=== PATIENT | female | born 1950 | race Caucasian/White ===

== ENCOUNTER 2023-08-10 15:33 | Inpatient (IN) | payer OTHER ==
[2023-08-10 16:29] VITALS: BMI 19.1
[2023-08-10] MEDS ORDERED: ACETAMINOPHEN 1000 MG/100 ML BAG IVPB ONE (16:29)
[2023-08-10] MEDS ORDERED: ACETAMINOPHEN INJECTION 100 ML IVPB ONE (16:57)
[2023-08-10 18:16] LABS: BASO % 0.4 % (0-2.0); EOS % 0.1 % (0-4.5); HEMATOCRIT 42.6 % (32.4-45.2); HEMOGLOBIN 14.1 GM/dL (10.7-15.3); LYMPH % 7.8 % (8-40); MCH 28.1 pg (25.7-33.7); MCHC 33.1 g/dl (32.0-36.0); MEAN PLT VOLUME 7.9 fl (7.5-11.1); MONO % 3.9 % (3.8-10.2); NEUT % 87.8 % (42.8-82.8); PLATELET COUNT 171 10^3/uL (134-434); RBC 5.01 M/mm3 (3.60-5.2); WHITE BLOOD COUNT 9.4 K/mm3 (4.0-10.0)
[2023-08-10 18:18] LABS: POTASSIUM 4.2 mmol/L (3.5-5.1)
[2023-08-10 18:46] LABS: ALBUMIN 4.2 g/dl (3.4-5.0); BILIRUBIN,TOTAL 0.4 mg/dL (0.2-1); BLOOD UREA NITROGEN 8.8 mg/dL (7-18); CALCIUM 10.1 mg/dL (8.5-10.1); CREATININE 0.7 mg/dL (0.55-1.3); MAGNESIUM 2.4 mg/dL (1.8-2.4); PHOSPHOROUS 2.4 mg/dL (2.5-4.9); TOT PROT 8.6 g/dl (6.4-8.2)
[2023-08-10] MEDS ORDERED: HALOPERIDOL LACTATE 5 MG/ML IM ONE (18:50)
[2023-08-10] MEDS ORDERED: HALOPERIDOL LACTATE 5 MG/ML IVPUSH ONE (18:50)
[2023-08-10] MEDS ORDERED: HALOPERIDOL LACTATE 5 MG/ML ONE (18:51)
[2023-08-10] MEDS ORDERED: LACTATED RINGERS SOLUTION 1000 ML INFUS.BAG IV ONE (19:00)
[2023-08-10 20:18] LABS: EPI CELLS 2 /uL (0-25.1); HYALINE CASTS 0 /uL (0-3.1); URINE APPEARANCE CLEAR; URINE BACTERIA 2 /uL (0-1359); URINE BILIRUBIN NEGATIVE (NEGATIVE); URINE COLOR YELLOW; URINE GLUCOSE (UA) NEGATIVE (NEGATIVE); URINE KETONE NEGATIVE (NEGATIVE); URINE LEUK ESTERASE NEGATIVE (NEGATIVE); URINE NITRITE NEGATIVE (NEGATIVE); URINE PROTEIN NEGATIVE (NEGATIVE); URINE RBC 376 /uL (0-23.9); URINE UROBILINOGEN 0.2 mg/dL (0.2-1.0); URINE WBC 3 /uL (0-25.8)
[2023-08-10] MEDS ORDERED: NAPH,MB-DB/K PH,MBDB POWDER PACKET PO ONE (23:15)
[2023-08-11] MEDS: SODIUM CHLORIDE 1,000 ML IV SCH (00:51)
[2023-08-11] MEDS ORDERED: GABAPENTIN 100 MG CAPSULE ONE ×2 (04:52→14:35)
[2023-08-11] MEDS ORDERED: busPIRone HCL 5 MG TABLET ONE ×2 (04:53→14:35)
[2023-08-11] MEDS: busPIRone HCL 10 MG TABLET (FP) PO SCH ×3 (05:16→22:25)
[2023-08-11] MEDS: GABAPENTIN 100 MG CAPSULE PO SCH ×3 (05:16→22:25)
[2023-08-11] MEDS ORDERED: HEPARIN NA (PORCINE) 5,000 UNITS/ML 1ML VIAL SQ SCH (06:00)
[2023-08-11 08:17] LABS: HEMATOCRIT 33.4 % (32.4-45.2); MCH 28.3 pg (25.7-33.7); MEAN CELL VOLUME 85.6 fl (80-96); MEAN PLT VOLUME 7.6 fl (7.5-11.1); PLATELET COUNT 137 10^3/uL (134-434); RDW 16.2 % (11.6-15.6); WHITE BLOOD COUNT 8.8 K/mm3 (4.0-10.0)
[2023-08-11 08:21] LABS: POTASSIUM 3.5 mmol/L (3.5-5.1)
[2023-08-11 08:27] LABS: BLOOD UREA NITROGEN 8.1 mg/dL (7-18); MAGNESIUM 2.1 mg/dL (1.8-2.4)
[2023-08-11 08:29] LABS: CREATININE 0.6 mg/dL (0.55-1.3); PHOSPHOROUS 2.2 mg/dL (2.5-4.9)
[2023-08-11 08:33] LABS: BILIRUBIN,TOTAL 0.3 mg/dL (0.2-1)
[2023-08-11 08:42] LABS: CALCIUM 8.5 mg/dL (8.5-10.1); TOT PROT 6.5 g/dl (6.4-8.2)
[2023-08-11] MEDS: LEVOTHYROXINE NA 88 MCG TABLET (FP) PO SCH (08:43)
[2023-08-11] MEDS: DOCUSATE SODIUM 100 MG CAPSULE (FP) PO SCH (10:00)
[2023-08-11] MEDS ORDERED: PATIENT'S OWN MEDICATION (NON-FORMULARY) (Mirabegron [Myrbetriq] 50 MG Tab.Er.24h) PO SCH (10:00)
[2023-08-11] MEDS: HEPARIN NA (PORCINE) 5,000 UNITS/ML 1ML VIAL SQ SCH ×2 (10:00→22:25)
[2023-08-11] MEDS ORDERED: FAMOTIDINE 20 MG TABLET ONE (12:21)
[2023-08-11] MEDS: SOLIFENACIN SUCCINATE 5 MG TAB PO SCH (12:25)
[2023-08-11] MEDS: FAMOTIDINE 20 MG TABLET PO SCH (12:43)
[2023-08-11] MEDS ORDERED: REMDESIVIR 200 MG in SODIUM CHLORIDE 250 ML IVPB ONE (13:30)
[2023-08-11] MEDS ORDERED: clonazePAM 0.5 MG TABLET ONE (14:35)
[2023-08-11] MEDS: clonazePAM 0.5 MG TABLET PO SCH ×2 (15:00→22:25)
[2023-08-11] MEDS ORDERED: CEFTRIAXONE 1 GM in DEXTROSE 5%-WATER - 50 ML IVPB SCH (15:15)
[2023-08-11] MEDS ORDERED: AZTREONAM 1 GM VIAL (RESTRICTED TO ID) ONE (16:13)
[2023-08-11] MEDS: AZTREONAM 1 GM in DEXTROSE 5%-WATER - 50 ML IVPB SCH ×2 (16:30→23:23)
[2023-08-11] MEDS ORDERED: traZODone HCL 50 MG TABLET (FP) ONE (22:15)
[2023-08-11] MEDS: ATORVASTATIN CA 10 MG TABLET (FP) PO SCH (22:25)
[2023-08-11] MEDS: MELATONIN 5 MG TABLETS PO SCH (22:26)
[2023-08-11] MEDS: traZODone HCL 100 MG TABLET (FP) PO SCH (22:27)
[2023-08-12] MEDS: busPIRone HCL 10 MG TABLET (FP) PO SCH ×3 (06:33→21:42)
[2023-08-12] MEDS: LEVOTHYROXINE NA 88 MCG TABLET (FP) PO SCH (06:33)
[2023-08-12] MEDS: clonazePAM 0.5 MG TABLET PO SCH ×3 (06:33→21:42)
[2023-08-12] MEDS: SODIUM CHLORIDE 1,000 ML IV SCH (06:34)
[2023-08-12] MEDS: GABAPENTIN 100 MG CAPSULE PO SCH ×3 (06:34→21:42)
[2023-08-12] MEDS: AZTREONAM 1 GM in DEXTROSE 5%-WATER - 50 ML IVPB SCH ×2 (08:22→14:47)
[2023-08-12] MEDS: FAMOTIDINE 20 MG TABLET PO SCH (10:27)
[2023-08-12] MEDS: SOLIFENACIN SUCCINATE 5 MG TAB PO SCH (10:27)
[2023-08-12] MEDS: DOCUSATE SODIUM 100 MG CAPSULE (FP) PO SCH (10:27)
[2023-08-12] MEDS: HEPARIN NA (PORCINE) 5,000 UNITS/ML 1ML VIAL SQ SCH ×2 (10:36→21:43)
[2023-08-12] MEDS: REMDESIVIR 100 MG in SODIUM CHLORIDE 230 ML IVPB SCH (16:35)
[2023-08-12] MEDS ORDERED: traZODone HCL 50 MG TABLET (FP) ONE (21:17)
[2023-08-12] MEDS: MELATONIN 5 MG TABLETS PO SCH (21:42)
[2023-08-12] MEDS: ATORVASTATIN CA 10 MG TABLET (FP) PO SCH (21:42)
[2023-08-12] MEDS: traZODone HCL 100 MG TABLET (FP) PO SCH (21:43)
[2023-08-13] MEDS: LEVOTHYROXINE NA 88 MCG TABLET (FP) PO SCH (06:53)
[2023-08-13] MEDS: GABAPENTIN 100 MG CAPSULE PO SCH ×4 (06:53→21:40)
[2023-08-13] MEDS: clonazePAM 0.5 MG TABLET PO SCH ×4 (06:53→21:39)
[2023-08-13] MEDS: busPIRone HCL 10 MG TABLET (FP) PO SCH ×4 (06:53→21:39)
[2023-08-13] MEDS: FAMOTIDINE 20 MG TABLET PO SCH (13:53)
[2023-08-13] MEDS: SOLIFENACIN SUCCINATE 5 MG TAB PO SCH (13:57)
[2023-08-13] MEDS: REMDESIVIR 100 MG in SODIUM CHLORIDE 230 ML IVPB SCH (16:44)
[2023-08-13] MEDS: HEPARIN NA (PORCINE) 5,000 UNITS/ML 1ML VIAL SQ SCH ×2 (16:44→21:39)
[2023-08-13] MEDS ORDERED: traZODone HCL 50 MG TABLET (FP) ONE (20:38)
[2023-08-13] MEDS: traZODone HCL 100 MG TABLET (FP) PO SCH ×2 (20:43→21:39)
[2023-08-13] MEDS: MELATONIN 5 MG TABLETS PO SCH ×2 (20:45→21:40)
[2023-08-13] MEDS: ATORVASTATIN CA 10 MG TABLET (FP) PO SCH ×2 (20:45→21:39)
[2023-08-14] MEDS: busPIRone HCL 10 MG TABLET (FP) PO SCH ×3 (06:23→21:18)
[2023-08-14] MEDS: LEVOTHYROXINE NA 88 MCG TABLET (FP) PO SCH (06:23)
[2023-08-14] MEDS: clonazePAM 0.5 MG TABLET PO SCH ×3 (06:23→21:09)
[2023-08-14] MEDS: GABAPENTIN 100 MG CAPSULE PO SCH ×3 (06:23→21:10)
[2023-08-14] MEDS: FAMOTIDINE 20 MG TABLET PO SCH ×3 (09:54→12:00)
[2023-08-14] MEDS: HEPARIN NA (PORCINE) 5,000 UNITS/ML 1ML VIAL SQ SCH ×2 (09:55→21:09)
[2023-08-14] MEDS: SOLIFENACIN SUCCINATE 5 MG TAB PO SCH (14:34)
[2023-08-14] MEDS ORDERED: traMADol HCL 50 MG TABLET PO PRN (17:01)
[2023-08-14] MEDS ORDERED: ACETAMINOPHEN 325 MG TABLET (FP) PO PRN (17:02)
[2023-08-14] MEDS ORDERED: ONDANSETRON 4 MG/2 ML VIAL IVPUSH PRN (17:10)
[2023-08-14] MEDS ORDERED: ONDANSETRON 4 MG TABLET PO ONE (17:30)
[2023-08-14] MEDS ORDERED: diphenhydrAMINE HCL 25 MG CAPSULE (FP) PO PRN (17:33)
[2023-08-14] MEDS ORDERED: traZODone HCL 50 MG TABLET (FP) ONE (19:59)
[2023-08-14] MEDS: BENZOCAINE/MENTHOL 1 EACH LOZENGE MM PRN (21:01)
[2023-08-14] MEDS: traZODone HCL 100 MG TABLET (FP) PO SCH (21:09)
[2023-08-14] MEDS: MELATONIN 5 MG TABLETS PO SCH (21:10)
[2023-08-14] MEDS: ATORVASTATIN CA 10 MG TABLET (FP) PO SCH (21:10)
[2023-08-15] MEDS: GABAPENTIN 100 MG CAPSULE PO SCH ×3 (06:16→21:33)
[2023-08-15] MEDS: busPIRone HCL 10 MG TABLET (FP) PO SCH ×3 (06:16→21:34)
[2023-08-15] MEDS: clonazePAM 0.5 MG TABLET PO SCH ×3 (06:16→21:35)
[2023-08-15] MEDS: LEVOTHYROXINE NA 88 MCG TABLET (FP) PO SCH (06:17)
[2023-08-15] MEDS: FAMOTIDINE 20 MG TABLET PO SCH (10:49)
[2023-08-15] MEDS: SOLIFENACIN SUCCINATE 5 MG TAB PO SCH (10:50)
[2023-08-15] MEDS: HEPARIN NA (PORCINE) 5,000 UNITS/ML 1ML VIAL SQ SCH ×2 (10:50→21:35)
[2023-08-15] MEDS ORDERED: traZODone HCL 50 MG TABLET (FP) ONE ×2 (21:28→21:36)
[2023-08-15] MEDS: PHENOL 177 ML SPRAY BOTTLE MM PRN (21:31)
[2023-08-15] MEDS: MELATONIN 5 MG TABLETS PO SCH (21:33)
[2023-08-15] MEDS: ATORVASTATIN CA 10 MG TABLET (FP) PO SCH (21:35)
[2023-08-15] MEDS: traZODone HCL 100 MG TABLET (FP) PO SCH (21:40)
[2023-08-16] MEDS: busPIRone HCL 10 MG TABLET (FP) PO SCH ×4 (06:09→21:42)
[2023-08-16] MEDS: LEVOTHYROXINE NA 88 MCG TABLET (FP) PO SCH (06:09)
[2023-08-16] MEDS: clonazePAM 0.5 MG TABLET PO SCH ×3 (06:09→21:42)
[2023-08-16] MEDS: GABAPENTIN 100 MG CAPSULE PO SCH ×3 (06:09→21:42)
[2023-08-16] MEDS: HEPARIN NA (PORCINE) 5,000 UNITS/ML 1ML VIAL SQ SCH ×3 (10:00→21:43)
[2023-08-16] MEDS: FAMOTIDINE 20 MG TABLET PO SCH (11:41)
[2023-08-16] MEDS: SOLIFENACIN SUCCINATE 5 MG TAB PO SCH (11:41)
[2023-08-16] MEDS: BENZOCAINE/MENTHOL 1 EACH LOZENGE MM PRN (15:44)
[2023-08-16] MEDS: PHENOL 177 ML SPRAY BOTTLE MM PRN (15:44)
[2023-08-16] MEDS: ATORVASTATIN CA 10 MG TABLET (FP) PO SCH (21:42)
[2023-08-16] MEDS: traZODone HCL 100 MG TABLET (FP) PO SCH (21:42)
[2023-08-16] MEDS: MELATONIN 5 MG TABLETS PO SCH (21:42)
[2023-08-17] MEDS: clonazePAM 0.5 MG TABLET PO SCH (06:20)
[2023-08-17] MEDS: LEVOTHYROXINE NA 88 MCG TABLET (FP) PO SCH (06:20)
[2023-08-17] MEDS: busPIRone HCL 10 MG TABLET (FP) PO SCH ×3 (06:20→22:04)
[2023-08-17] MEDS: GABAPENTIN 100 MG CAPSULE PO SCH ×3 (06:21→22:06)
[2023-08-17] MEDS ORDERED: BENZOCAINE/MENTHOL 1 EACH LOZENGE MM PRN (08:37)
[2023-08-17] MEDS: SOLIFENACIN SUCCINATE 5 MG TAB PO SCH (10:27)
[2023-08-17] MEDS: FAMOTIDINE 20 MG TABLET PO SCH (10:27)
[2023-08-17] MEDS: HEPARIN NA (PORCINE) 5,000 UNITS/ML 1ML VIAL SQ SCH ×2 (10:27→22:04)
[2023-08-17] MEDS: ATORVASTATIN CA 10 MG TABLET (FP) PO SCH (22:04)
[2023-08-17] MEDS: MELATONIN 5 MG TABLETS PO SCH (22:04)
[2023-08-17] MEDS: traZODone HCL 100 MG TABLET (FP) PO SCH (22:05)
[2023-08-18] MEDS: busPIRone HCL 10 MG TABLET (FP) PO SCH ×3 (06:27→21:26)
[2023-08-18] MEDS: LEVOTHYROXINE NA 88 MCG TABLET (FP) PO SCH (06:27)
[2023-08-18] MEDS: GABAPENTIN 100 MG CAPSULE PO SCH ×3 (06:27→21:25)
[2023-08-18] MEDS ORDERED: HALOPERIDOL LACTATE 5 MG/ML IM ONE (08:25)
[2023-08-18] MEDS: SOLIFENACIN SUCCINATE 5 MG TAB PO SCH (10:20)
[2023-08-18] MEDS: FAMOTIDINE 20 MG TABLET PO SCH (10:20)
[2023-08-18] MEDS: HEPARIN NA (PORCINE) 5,000 UNITS/ML 1ML VIAL SQ SCH ×2 (11:32→21:26)
[2023-08-18] MEDS: AMINO ACIDS/PROTEIN HYDROLYS 30 ML LIQUID.PKT PO SCH (11:32)
[2023-08-18] MEDS ORDERED: LORazepam 2 MG/ML SDV VIAL IM PRN (12:06)
[2023-08-18] MEDS: ATORVASTATIN CA 10 MG TABLET (FP) PO SCH (21:25)
[2023-08-18] MEDS: MELATONIN 5 MG TABLETS PO SCH (21:25)
[2023-08-18] MEDS: traZODone HCL 100 MG TABLET (FP) PO SCH (21:26)
[2023-08-18] MEDS ORDERED: ONDANSETRON *ODT* 4 MG TABLET SL PRN (22:15)
[2023-08-19] MEDS: GABAPENTIN 100 MG CAPSULE PO SCH (05:51)
[2023-08-19] MEDS: busPIRone HCL 10 MG TABLET (FP) PO SCH (05:52)
[2023-08-19] MEDS: LEVOTHYROXINE NA 88 MCG TABLET (FP) PO SCH (07:01)
[2023-08-19] MEDS ORDERED: clonazePAM 0.5 MG TABLET PO SCH (07:30)
[2023-08-19] MEDS: AMINO ACIDS/PROTEIN HYDROLYS 30 ML LIQUID.PKT PO SCH (08:42)
[2023-08-19] MEDS ORDERED: NAPH,MB-DB/K PH,MBDB POWDER PACKET PO SCH (10:00)
[2023-08-19] MEDS: SOLIFENACIN SUCCINATE 5 MG TAB PO SCH (12:00)
[2023-08-19] MEDS: FAMOTIDINE 20 MG TABLET PO SCH (12:00)
[2023-08-19] MEDS: HEPARIN NA (PORCINE) 5,000 UNITS/ML 1ML VIAL SQ SCH (12:01)
[2023-08-19 12:18] VITALS: BP 128/77; PULSE 98; RESP 20; TEMP 99
== END 2023-08-19 12:33 | DRG 177 ==
LOC: JER 15:33 → JERBED 21:27 → J4W 08-11 18:53 → OBSVTOIN 08-12 09:22 → J4W 08-14 01:49 → J7W 08-16 18:10
PROVIDERS: ADMIT Student in an Organized Health Care Education/Training Program; ATTEND Internal Medicine
PROC: XW033E5 Introduction of Remdesivir Anti-infective into Peripheral Vein, Percutaneous Approach, New Technology Group 5 (ICD-10-PCS; principal; 2023-08-11)
DX: U07.1 COVID-19 (principal); E43 Unspecified severe protein-calorie malnutrition; Z68.1 Body mass index [BMI] 19.9 or less, adult; E03.9 Hypothyroidism, unspecified; F41.9 Anxiety disorder, unspecified; N32.81 Overactive bladder; K21.9 Gastro-esophageal reflux disease without esophagitis; E78.5 Hyperlipidemia, unspecified; F32.A Depression, unspecified; Z74.01 Bed confinement status; R41.0 Disorientation, unspecified; F03.90 Unspecified dementia, unspecified severity, without behavioral disturbance, psychotic disturbance, mood disturbance, and anxiety; R31.29 Other microscopic hematuria; R62.7 Adult failure to thrive
CPT/HCPCS: 0241U-QW; 36415; 70450-TC; 70486-TC; 71045-TC-FY; 72125-TC; 76705-TC; 80053; 81003; 82308; 83735; 84100; 84443; 84484; 85025; 85027; 87040; 87086; 87635; 93005; 93010; 93880-TC; 97116-GP; 97161-GP; 99285-25; G0378; J0248; J1644

== ENCOUNTER 2024-02-13 16:32 | Emergency (ER) | payer OTHER ==
[2024-02-13 16:47] VITALS: BP 113/74; PULSE 92; RESP 18; TEMP 98; BMI 14.0
[2024-02-13] MEDS ORDERED: ACETAMINOPHEN 325 MG TABLET (FP) ONE (18:24)
[2024-02-13] MEDS: ACETAMINOPHEN 325 MG TABLET (FP) PO ONE (19:31)
== END 2024-02-13 23:24 | disposition home or self-care (01) ==
LOC: JER 16:32
DX: S09.90XA Unspecified injury of head, initial encounter (principal); W18.39XA Other fall on same level, initial encounter
CPT/HCPCS: 70450-TC; 71045-TC-FY; 72125-TC; 72170-TC-FY; 99284-25

== ENCOUNTER 2024-08-11 01:38 | Emergency (ER) | payer OTHER ==
[2024-08-11 02:04] VITALS: BMI 16.0
[2024-08-11] MEDS ORDERED: ACETAMINOPHEN INJECTION 100 ML ONE (02:42)
[2024-08-11] MEDS: ACETAMINOPHEN 1000 MG/100 ML BAG IVPB ONE (03:19)
[2024-08-11 03:43] LABS: BASO % 0.5 % (0-2.0); EOS % 3.5 % (0-4.5); HEMATOCRIT 34.9 % (32.4-45.2); HEMOGLOBIN 11.3 GM/dL (10.7-15.3); MCH 28.3 pg (25.7-33.7); MCHC 32.3 g/dl (32.0-36.0); MEAN CELL VOLUME 87.5 fl (80-96); MEAN PLT VOLUME 7.4 fl (7.5-11.1); MONO % 6.1 % (3.8-10.2); NEUT % 63.9 % (42.8-82.8); PLATELET COUNT 225 10^3/uL (134-434); RBC 3.99 M/mm3 (3.60-5.2); RDW 16.3 % (11.6-15.6); WHITE BLOOD COUNT 7.4 K/mm3 (4.0-10.0)
[2024-08-11 04:06] LABS: POTASSIUM 3.8 mmol/L (3.5-5.1)
[2024-08-11 04:09] LABS: ALBUMIN 3.5 g/dl (3.4-5.0); BLOOD UREA NITROGEN 9.8 mg/dL (7-18); CALCIUM 9.7 mg/dL (8.5-10.1)
[2024-08-11 04:12] LABS: CREATININE 0.6 mg/dL (0.55-1.3)
[2024-08-11 04:14] LABS: BILIRUBIN,TOTAL 0.2 mg/dL (0.2-1); TOT PROT 7.7 g/dl (6.4-8.2)
[2024-08-11 05:44] VITALS: BP 142/59; PULSE 82; RESP 16; TEMP 97.6
== END 2024-08-11 09:23 ==
LOC: JER 01:38
PROC: 3E033NZ Introduction of Analgesics, Hypnotics, Sedatives into Peripheral Vein, Percutaneous Approach (ICD-10-PCS; principal; 2024-08-11)
DX: R07.9 Chest pain, unspecified (principal); R05.9 Cough, unspecified; R09.81 Nasal congestion; Z20.822 Contact with and (suspected) exposure to COVID-19
CPT/HCPCS: 0241U-QW; 36415; 71045-TC-FY; 80053; 84484; 85025; 93005; 93010; 99285-25; J0131

== ENCOUNTER 2024-09-01 15:35 | Emergency (ER) | payer OTHER ==
[2024-09-01 16:02] VITALS: RESP 18; TEMP 98.5; BMI 17.3
[2024-09-01 21:29] VITALS: BP 98/60; PULSE 78
== END 2024-09-01 21:43 ==
LOC: JER 15:35
DX: M54.9 Dorsalgia, unspecified (principal); M25.561 Pain in right knee; M25.562 Pain in left knee; W01.198A Fall on same level from slipping, tripping and stumbling with subsequent striking against other object, initial encounter
CPT/HCPCS: 70450-TC; 72125-TC; 99284-25

== ENCOUNTER 2024-10-23 17:49 | Inpatient (IN) | payer OTHER ==
[2024-10-23] MEDS ORDERED: ACETAMINOPHEN INJECTION 100 ML ONE (19:24)
[2024-10-23 19:30] LABS: VENOUS BASE EXCESS -0.1 mmol/L (-2-2); VENOUS PCO2 41.6 mmHg (38-52); VENOUS PH 7.394 (7.310-7.410)
[2024-10-23] MEDS: ACETAMINOPHEN 1000 MG/100 ML BAG IVPB ONE (19:31)
[2024-10-23 19:37] LABS: BASO % 0.7 % (0-2.0); EOS % 0.1 % (0-4.5); HEMATOCRIT 34.2 % (32.4-45.2); LYMPH % 6.7 % (8-40); MCH 28.1 pg (25.7-33.7); MCHC 32.1 g/dl (32.0-36.0); MEAN CELL VOLUME 87.5 fl (80-96); MEAN PLT VOLUME 8.1 fl (7.5-11.1); MONO % 8.3 % (3.8-10.2); NEUT % 84.2 % (42.8-82.8); PLATELET COUNT 154 10^3/uL (134-434); RBC 3.91 M/mm3 (3.60-5.2); RDW 14.9 % (11.6-15.6); WHITE BLOOD COUNT 5.6 K/mm3 (4.0-10.0)
[2024-10-23] MEDS: SODIUM CHLORIDE 0.9% 500 ML INFUS.BAG IV ONE (19:42)
[2024-10-23 19:46] LABS: INR 1.17 (0.83-1.09); PROTHROMBIN TIME (PATIENT) 13.4 SEC (9.7-13.0)
[2024-10-23 19:48] LABS: POTASSIUM 4.8 mmol/L (3.5-5.1)
[2024-10-23 19:50] LABS: CALCIUM 9.6 mg/dL (8.5-10.1)
[2024-10-23 19:51] LABS: ALBUMIN 3.4 g/dl (3.4-5.0); BLOOD UREA NITROGEN 11.6 mg/dL (7-18)
[2024-10-23 19:54] LABS: CREATININE 0.7 mg/dL (0.55-1.3)
[2024-10-23 19:55] LABS: BILIRUBIN,TOTAL 0.3 mg/dL (0.2-1); TOT PROT 7.6 g/dl (6.4-8.2)
[2024-10-23] MEDS ORDERED: OSELTAMIVIR PHOSPHATE 75 MG CAPSULE ONE (22:54)
[2024-10-23] MEDS: OSELTAMIVIR PHOSPHATE 75 MG CAPSULE PO ONE (23:03)
[2024-10-24] MEDS ORDERED: clonazePAM 0.5 MG TABLET ONE ×2 (03:30→09:08)
[2024-10-24] MEDS: PATIENT'S OWN MEDICATION (NON-FORMULARY) (Clonazepam [Clonazepam] 1 MG Tablet) PO SCH (03:35)
[2024-10-24] MEDS: BENZONATATE 200 MG CAPSULE PO PRN (04:07)
[2024-10-24] MEDS: OLANZapine 10 MG TABLET PO SCH ×2 (04:12→09:03)
[2024-10-24] MEDS ORDERED: ACETAMINOPHEN INJECTION 100 ML ONE (05:37)
[2024-10-24] MEDS: ACETAMINOPHEN 1000 MG/100 ML BAG IVPB ONE ×2 (05:38→22:55)
[2024-10-24 06:00] LABS: URINE APPEARANCE CLEAR; URINE BILIRUBIN NEGATIVE (NEGATIVE); URINE COLOR YELLOW; URINE GLUCOSE (UA) NEGATIVE (NEGATIVE); URINE KETONE NEGATIVE (NEGATIVE); URINE LEUK ESTERASE 2+ (NEGATIVE); URINE NITRITE NEGATIVE (NEGATIVE); URINE PROTEIN TRACE (NEGATIVE); URINE UROBILINOGEN 0.2 mg/dL (0.2-1.0)
[2024-10-24 06:17] LABS: EPI CELLS 41.7 /uL (0-25.1); URINE BACTERIA 312.7 /uL (0-1359)
[2024-10-24 08:03] LABS: BASO % 0.5 % (0-2.0); HEMATOCRIT 30.7 % (32.4-45.2); HEMOGLOBIN 10.2 GM/dL (10.7-15.3); LYMPH % 10.9 % (8-40); MCH 28.6 pg (25.7-33.7); MCHC 33.2 g/dl (32.0-36.0); MEAN CELL VOLUME 86.1 fl (80-96); MEAN PLT VOLUME 7.9 fl (7.5-11.1); MONO % 8.6 % (3.8-10.2); PLATELET COUNT 124 10^3/uL (134-434); RBC 3.56 M/mm3 (3.60-5.2); RDW 15.2 % (11.6-15.6); WHITE BLOOD COUNT 3.2 K/mm3 (4.0-10.0)
[2024-10-24 08:17] LABS: POTASSIUM 3.7 mmol/L (3.5-5.1)
[2024-10-24 08:19] LABS: CALCIUM 8.6 mg/dL (8.5-10.1)
[2024-10-24 08:20] LABS: BLOOD UREA NITROGEN 10.6 mg/dL (7-18); MAGNESIUM 1.9 mg/dL (1.8-2.4)
[2024-10-24 08:23] LABS: CREATININE 0.6 mg/dL (0.55-1.3)
[2024-10-24] MEDS ORDERED: ACETAMINOPHEN 325 MG TABLET (FP) ONE ×2 (08:55→09:08)
[2024-10-24] MEDS: OSELTAMIVIR PHOSPHATE 30 MG CAPSULE PO SCH (09:03)
[2024-10-24] MEDS: oxyCODONE HCL 5 MG TABLET PO SCH (09:09)
[2024-10-24] MEDS: ACETAMINOPHEN 325 MG TABLET (FP) PO SCH (09:09)
[2024-10-24] MEDS: clonazePAM 0.5 MG TABLET PO SCH (09:09)
[2024-10-24] MEDS ORDERED: oxyCODONE HCL 5 MG TABLET ONE (09:09)
[2024-10-24] MEDS ORDERED: PATIENT'S OWN MEDICATION (NON-FORMULARY) (Diclofenac Sodium [Voltaren] 100 GM Gel..Gram.) TP SCH (11:15)
[2024-10-24] MEDS: BUDESONIDE/FORMOTEROL FUMARATE 80-4.5 MCG (10.3 GM INHALER) IH SCH (12:42)
[2024-10-24] MEDS: ACETAMINOPHEN 325 MG TABLET (FP) PO PRN (13:49)
[2024-10-24] MEDS: LIDOCAINE 5% TOPICAL PATCH TP PRN (15:35)
[2024-10-24] MEDS: ASCORBIC ACID 500 MG TABLET (FP) PO SCH (21:09)
[2024-10-24] MEDS: traZODone HCL 100 MG TABLET (FP) PO SCH (21:09)
[2024-10-24] MEDS: SERTRALINE HCL 50 MG TABLET (FP) PO SCH (21:09)
[2024-10-24] MEDS: MELATONIN 5 MG TABLETS PO SCH (21:09)
[2024-10-24] MEDS: ATORVASTATIN CA 20 MG TABLET (FP) PO SCH (21:09)
[2024-10-24] MEDS ORDERED: SUVOREXANT 5 MG TABLET PO PRN (22:00)
[2024-10-24] MEDS ORDERED: DICLOFENAC SODIUM TP SCH (22:00)
[2024-10-24] MEDS ORDERED: PATIENT'S OWN MEDICATION (NON-FORMULARY) (Olanzapine [Zyprexa] 10 MG Tablet) PO SCH (22:00)
[2024-10-24] MEDS ORDERED: SUVOREXANT 10 MG TABLET PO PRN (22:52)
[2024-10-24] MEDS: LIDOCAINE PATCH REMOVAL MC SCH (23:04)
[2024-10-25] MEDS: SUVOREXANT 20 MG TABLET PO SCH (00:46)
[2024-10-25] MEDS: ACETAMINOPHEN 1000 MG/100 ML BAG IVPB ONE (04:40)
[2024-10-25] MEDS: IBUPROFEN 800 MG/8 ML IJ IVPB ONE (07:10)
[2024-10-25 08:33] LABS: BASO % 0.2 % (0-2.0); EOS % 0.1 % (0-4.5); HEMATOCRIT 31.2 % (32.4-45.2); HEMOGLOBIN 10.5 GM/dL (10.7-15.3); LYMPH % 8.5 % (8-40); MCHC 33.5 g/dl (32.0-36.0); MEAN CELL VOLUME 86.7 fl (80-96); MEAN PLT VOLUME 8.2 fl (7.5-11.1); MONO % 3.2 % (3.8-10.2); PLATELET COUNT 122 10^3/uL (134-434); RDW 15.3 % (11.6-15.6); WHITE BLOOD COUNT 6.2 K/mm3 (4.0-10.0)
[2024-10-25 08:57] LABS: POTASSIUM 3.5 mmol/L (3.5-5.1)
[2024-10-25 09:02] LABS: CREATININE 0.9 mg/dL (0.55-1.3)
[2024-10-25] MEDS: MIDODRINE HCL 2.5 MG TABLET PO SCH (09:29)
[2024-10-25] MEDS: SOLIFENACIN SUCCINATE 5 MG TAB PO SCH (09:34)
[2024-10-25] MEDS: LEVOTHYROXINE NA 88 MCG TABLET (FP) PO SCH (09:34)
[2024-10-25] MEDS: DOCUSATE SODIUM 100 MG CAPSULE (FP) PO SCH (09:35)
[2024-10-25] MEDS: PANTOPRAZOLE 20 MG TABLET PO SCH (09:35)
[2024-10-25] MEDS: MAGNESIUM OXIDE 400 MG TABLET (FP) PO SCH (09:37)
[2024-10-25] MEDS: MULTIVITAMINS (DAILY MVI) TABLET (FP) PO SCH (09:38)
[2024-10-25] MEDS ORDERED: DICLOFENAC EPOLAMINE TD SCH (10:00)
[2024-10-25] MEDS ORDERED: PATIENT'S OWN MEDICATION (NON-FORMULARY) (Melatonin [Melatonin] 10 MG Tablet) PO SCH (10:00)
[2024-10-25] MEDS ORDERED: OLANZapine 10 MG TABLET PO SCH (10:00)
[2024-10-25] MEDS ORDERED: MULTIVITAMINS (DAILY MVI) TABLET (FP) PO SCH (10:00)
[2024-10-25] MEDS ORDERED: PATIENT'S OWN MEDICATION (NON-FORMULARY) (Vibegron [Gemtesa] 75 MG Tablet) PO SCH (10:00)
[2024-10-25] MEDS ORDERED: MIDODRINE HCL 2.5 MG TABLET PO SCH (10:00)
[2024-10-25] MEDS ORDERED: PATIENT'S OWN MEDICATION (NON-FORMULARY) (Mirabegron [Myrbetriq] 50 MG Tab.Er.24h) PO SCH (10:00)
[2024-10-25] MEDS: METHYL SALICYLATE/MENTHOL 30 GM TUBE TP PRN (11:08)
[2024-10-25 11:21] LABS: ANISOCYTOSIS 0; MACROCYTOSIS 0
[2024-10-25] MEDS: traZODone HCL 100 MG TABLET (FP) PO SCH (13:41)
[2024-10-25] MEDS: PHENOL 177 ML SPRAY BOTTLE MM PRN (15:34)
[2024-10-25 16:00] VITALS: BMI 16.6
[2024-10-26] MEDS: oxyCODONE HCL 5 MG TABLET PO SCH (10:07)
[2024-10-26] MEDS: MIDODRINE HCL 5 MG TABLET PO SCH (10:08)
[2024-10-26] MEDS: LIDOCAINE 4% PATCH TP SCH (12:24)
[2024-10-26 12:36] LABS: BASO % 0.2 % (0-2.0); EOS % 0.2 % (0-4.5); HEMATOCRIT 32.9 % (32.4-45.2); HEMOGLOBIN 10.6 GM/dL (10.7-15.3); MCHC 32.1 g/dl (32.0-36.0); MEAN CELL VOLUME 87.1 fl (80-96); MEAN PLT VOLUME 8.3 fl (7.5-11.1); MONO % 4.9 % (3.8-10.2); NEUT % 81.7 % (42.8-82.8); PLATELET COUNT 156 10^3/uL (134-434); RBC 3.77 M/mm3 (3.60-5.2); RDW 14.9 % (11.6-15.6); WHITE BLOOD COUNT 6.6 K/mm3 (4.0-10.0)
[2024-10-26 12:57] LABS: POTASSIUM 3.9 mmol/L (3.5-5.1)
[2024-10-26 13:10] LABS: CALCIUM 9.3 mg/dL (8.5-10.1)
[2024-10-26 13:11] LABS: BLOOD UREA NITROGEN 22.2 mg/dL (7-18)
[2024-10-26 13:14] LABS: CREATININE 0.6 mg/dL (0.55-1.3)
[2024-10-26] MEDS: TRIMETHOBENZAMIDE HCL 200MG/2ML INJ IM PRN (17:15)
[2024-10-26] MEDS: clonazePAM 0.5 MG TABLET PO SCH (20:30)
[2024-10-26] MEDS: OLANZapine 10 MG TABLET PO SCH (20:30)
[2024-10-26] MEDS: traZODone HCL 100 MG TABLET (FP) PO SCH (20:30)
[2024-10-26] MEDS: LIDOCAINE PATCH REMOVAL MC SCH (21:58)
[2024-10-27 07:34] LABS: BASO % 0.4 % (0-2.0); EOS % 0.7 % (0-4.5); HEMATOCRIT 30.6 % (32.4-45.2); LYMPH % 24.2 % (8-40); MCH 28.4 pg (25.7-33.7); MCHC 32.6 g/dl (32.0-36.0); MEAN CELL VOLUME 87.1 fl (80-96); MEAN PLT VOLUME 8.3 fl (7.5-11.1); MONO % 7.9 % (3.8-10.2); NEUT % 66.8 % (42.8-82.8); PLATELET COUNT 135 10^3/uL (134-434); RBC 3.51 M/mm3 (3.60-5.2); RDW 15.2 % (11.6-15.6); WHITE BLOOD COUNT 4.2 K/mm3 (4.0-10.0)
[2024-10-27 07:39] LABS: POTASSIUM 3.8 mmol/L (3.5-5.1)
[2024-10-27 07:42] LABS: CALCIUM 8.9 mg/dL (8.5-10.1)
[2024-10-27 07:43] LABS: BLOOD UREA NITROGEN 17.6 mg/dL (7-18)
[2024-10-27 07:46] LABS: CREATININE 0.5 mg/dL (0.55-1.3)
[2024-10-28] MEDS: MAG HYDROX/AL HYDROX/SIMETH 30 ML UNIT-DOSE CUP PO PRN (17:34)
[2024-10-28] MEDS: POLYETHYLENE GLYCOL (HEALTHYLAX) 3350 17 GM PACKET PO SCH (22:09)
[2024-10-29 08:05] VITALS: RESP 18
[2024-10-29 09:47] LABS: HEMATOCRIT 33.6 % (32.4-45.2); HEMOGLOBIN 11.1 GM/dL (10.7-15.3); MCH 28.7 pg (25.7-33.7); MCHC 33.2 g/dl (32.0-36.0); MEAN CELL VOLUME 86.6 fl (80-96); MEAN PLT VOLUME 8.1 fl (7.5-11.1); PLATELET COUNT 175 10^3/uL (134-434); RBC 3.88 M/mm3 (3.60-5.2); RDW 15.2 % (11.6-15.6); WHITE BLOOD COUNT 5.9 K/mm3 (4.0-10.0)
[2024-10-29 10:14] LABS: POTASSIUM 4.2 mmol/L (3.5-5.1)
[2024-10-29 10:17] LABS: CALCIUM 9.4 mg/dL (8.5-10.1)
[2024-10-29 10:18] LABS: BLOOD UREA NITROGEN 16.2 mg/dL (7-18)
[2024-10-29 10:21] LABS: CREATININE 0.5 mg/dL (0.55-1.3)
[2024-10-29 11:43] LABS: ANISOCYTOSIS 0; MACROCYTOSIS 0
[2024-10-29] MEDS ORDERED: AMINO ACIDS/PROTEIN HYDROLYS 30 ML LIQUID.PKT PO SCH (17:30)
[2024-10-29] MEDS: AMINO ACIDS/PROTEIN HYDROLYS 30 ML LIQUID.PKT PO SCH (17:34)
[2024-10-29 19:00] VITALS: BP 122/78; PULSE 80; TEMP 99.1
== END 2024-10-29 20:59 | DRG 193 ==
LOC: JER 17:49 → JERBED 21:22 → J7W 10-24 09:33 → OBSVTOIN 10-24 14:20
PROVIDERS: ADMIT Internal Medicine; ATTEND Internal Medicine
DX: J10.1 Influenza due to other identified influenza virus with other respiratory manifestations (principal); E43 Unspecified severe protein-calorie malnutrition; Z68.1 Body mass index [BMI] 19.9 or less, adult; E78.5 Hyperlipidemia, unspecified; J45.909 Unspecified asthma, uncomplicated; E03.9 Hypothyroidism, unspecified; K21.9 Gastro-esophageal reflux disease without esophagitis; F41.9 Anxiety disorder, unspecified; F03.90 Unspecified dementia, unspecified severity, without behavioral disturbance, psychotic disturbance, mood disturbance, and anxiety; E86.0 Dehydration; G89.29 Other chronic pain
CPT/HCPCS: 0241U-QW; 36415; 71045-TC-FY; 80048; 80053; 81003; 82803; 82962; 83605; 83735; 84100; 84484; 85025; 85610; 85730; 86850; 86900; 86901; 87040; 87077; 87086; 93005; 93010; 97116-GP; 97161-GP; 99285-25; G0378; J0131